=== PATIENT | male | born 1975 | race Caucasian/White ===

== ENCOUNTER 2017-12-30 06:57 | Day surgery (SDC) | payer MEDICAID ==
--- NOTE | 2017-12-30 06:35 | History and Physical - [place] ---
CHIEF COMPLAINT/HISTORY OF CHIEF COMPLAINT: This patient presents with a history of intractable lumbar radiculopathy. Due to the failure of therapy, a spinal cord stimulator trial was conducted on 11/23/17 with 75+% pain control. Due to the failure of other therapies and the success of the trial, he presents today for implantation of a permanent system. PAST MEDICAL HISTORY: Asthmatic bronchitis and sleep apnea. PAST SURGICAL HISTORY: Tonsils and adenoids and podiatric surgery. MEDICATIONS ON ADMISSION: List to be provided. ALLERGIES: None. FAMILY/PSYCHOSOCIAL HISTORY: Social history - Social alcohol and caffeine. Family - Asthma, diabetes, coronary artery disease, hypertension, and cancer. SYSTEMS REVIEW: The patient is appropriate in no acute distress. The remainder of the systems review is positive for glasses, degenerative arthritis , and trouble sleeping. PHYSICAL EXAMINATION: Height is 6'2", weight is 290. No vital signs. HEENT: Within normal limits. LUNGS: Clear. HEART: Regular rate and rhythm. ABDOMEN: Nontender. MUSCULOSKELETAL: Examination of the musculoskeletal system shows diffuse tenderness lumbar spine. Range of motion produces pain into both lower extremities, some more left than right. No motor or sensory abnormalities are noted within the lower extremities. Ambulation - An assistive device is not necessary. NEUROLOGIC: Cranial nerves are intact. IMPRESSION: LUMBAR RADICULOPATHY, ICD-10 CODE M54.16 AND M54.17. PLAN: The patient is here for implantation of a permanent spinal cord stimulator. The potential risks, side effects, and complications have all been carefully reviewed and discussed. The procedure will be considered outpatient, although an overnight stay will be evaluated. JOB NUMBER: [id number] [facility]
[~2017-12-30 06:57] MED LIST: ACETAMINOPHEN 1,000 MG/100 ML BTL IV ONE; CEFAZOLIN 2 Gram 2 GM/50 ML BAG IVPB ONE; FAMOTIDINE 20MG TABLET PO ONE; MECLIZINE 25 MG TABLET PO ONE; METOCLOPRAMIDE 10 MG TABLET PO ONE
[2017-12-30] MEDS ORDERED: FENTANYL PF 100MCG/2ML VIAL IV ONE (06:58)
[2017-12-30] MEDS ORDERED: LIDOCAINE 1% W/EPI 1:200,000 MPF 30ML SQ ONE (06:58)
[2017-12-30] MEDS ORDERED: 0.9 % SODIUM CHLORIDE 10 ML VIAL IVP ONE (06:58)
[2017-12-30] MEDS ORDERED: PROPOFOL 10 MG/ML VIAL IV ONE (06:58)
[2017-12-30] MEDS ORDERED: CEFAZOLIN 1G VIAL IM ONE (06:58)
[2017-12-30] MEDS ORDERED: BUPIVACAINE 0.5% W/EPI MPF 30 ML VIAL IVP ONE (06:58)
[2017-12-30] MEDS ORDERED: HYDROMORPHONE HCL 2 MG/ML VIAL IV ONE (06:58)
[2017-12-30] MEDS ORDERED: MIDAZOLAM HCL 2MG/2ML VIAL IV ONE (06:58)
[2017-12-30] MEDS ORDERED: LIDOCAINE 2% MDV (20MG/ML) 20ML VIAL IV ONE (06:58)
--- NOTE | 2017-12-30 16:29 | Operative Note ---
DATE OF SURGERY: 12/30/17 PREOPERATIVE DIAGNOSIS: INTRACTABLE LUMBAR RADICULOPATHY, ICD-10 CODE = M54.16 AND M54.17. OPERATION: 1. FLUOROSCOPICALLY-GUIDED LEFT EPIDURAL ACCESS T11-12, CURVED EPIMED WITH LOSS OF RESISTANCE. PLACEMENT OF SPINAL CORD STIMULATOR LEAD 1, [employer] 16 WITH 6 ELECTRODES POSITIONED LEFT T6. 2. FLUOROSCOPICALLY-GUIDED EPIDURAL ACCESS LEFT T12-L1, PLACEMENT OF SPINAL CORD STIMULATOR LEAD 2, A [employer] 16 WITH 6 ELECTRODES POSITIONED RIGHT T6. 3. COMPLEX PROGRAMMING OF LEAD 1 OVER 20 MINUTES FOLLOWED BY COMPLEX PROGRAMMING OF LEAD 2 OVER 20 MINUTES. 4. INCISION, SUBCUTANEOUS DISSECTION, AND ANCHORING OF LEAD 1 AND LEAD 2 TO SUPRASPINOUS FASCIA USING A [employer] LOCK[employer] ANCHOR. 5. INCISION, SUBCUTANEOUS DISSECTION, AND CREATION OF SUBCUTANEOUS POUCH AT RIGHT FLANK; SITE PICKED BY PATIENT FOR THE GENERATOR, A [employer] PROGRAMMABLE RECHARGEABLE WAVEWRITER. 6. TUNNELING BETWEEN LEAD POUCH AND GENERATOR POUCH, PLACEMENT OF LEAD IN GENERATOR POUCH, EACH LEAD INTERFACED TO GENERATOR. 7. PLACEMENT OF GENERATOR INTO POUCH. PLACEMENT OF LEADS INTO POUCH. CLOSURE OF BOTH INCISIONS USING STRATAFIX SUTURE 2-0 FASCIA, 3-0 SKIN. DERMABOND CLOSURE. 8. COMPLEX RECOVERY ROOM PROGRAMMING INTERNAL GENERATOR HOME USE TWO STIMULATORS RECOVERY ROOM 20 MINUTES. SURGEON: ONUR PHOENIX D.O. ANESTHESIA: LOCAL SEDATION. ANESTHESIA PROVIDER: THONG SQUIRES CRNA. INDICATION: This patient presents with a history of intractable lumbar radiculopathy. Due to the failure of all therapies and a successful stimulator trial, the patient presents today for implantation of a permanent system. PROCEDURE: Intravenous line, vital sign monitoring, IV sedation. Prepped and draped sterile technique. Patient position prone. Sterile prep, sterile technique with imaging. The epidural interspace from the left at 11-12 and 12-1 marked, infiltrated. Using curved access Epimed needles with [id number] , this space was accessed. At 11-12, spinal cord stimulator lead 1, a [employer] 16 with 6 electrodes was positioned left of midline T6. With the epidural access at 12-1, spinal cord stimulator lead 2, also a [employer] 16 with 6 electrodes was positioned right at T6. Complex programming of lead 1 over 20 minutes followed by complex programming of lead 2 over 20 minutes resulting in complete patterns of stimulation across the back and into both legs; patient indicating we were in all of the areas of the pain. He was given the option to implant, continue to program, or remove; he opted to implant. Questions repeated with the same response. The skin above and below both needles was infiltrated, incision made, and subcutaneous dissection was conducted to the supraspinous fascia. Each of the leads was then anchored to the supraspinous fascia once the needle was removed with a [employer] [place] and nonabsorbable suture. At the right flank; a site picked by the patient for the generator, skin infiltrated, incision made and subcutaneous dissection was conducted to form a pouch of suitable size and depth for the generator, a [employer] Programmable Rechargeable WaveWriter. A tunneling tool carried the leads into the generator pouch and each lead was interfaced to the generator. Antibiotic irrigation and Bovie for hemostasis. The generator was placed into the pouch, the leads were placed into their own pouch, then both incisions were closed using STRATAFIX suture 2-0 fascia and 3- 0 skin. Dermabond closure approximating the edges of the wound. He was transported to the Recovery Room stable. No side-effects from the procedure or the sedation. When fully awake and alert in the Recovery Room, complex programming of the generator performed over 20 minutes re-establishing stimulation and pain control to all of the appropriate areas. He was instructed on the use of the system, provided with information and error messaging, and then prepared for discharge. DISCHARGE INSTRUCTIONS: 1. Sites to remain clean and dry. No showering or bathing in any way that would disrupt dressings. If it happens, contact the clinic. 2. Standard medications resumed including the antibiotic Levaquin 500 mg once a day for 14 days. 3. The office will contact the patient in the next 24-48 hours to set up an appointment in 7-10 days to evaluate the incisions. Until then, he is to keep his activities controlled. All other instructions provided, numbers to contact with problems given. He will be evaluated. He has 75-85% overall pain control. cc: Dr. Brandon James JOB NUMBER: [id number] [facility]TDD
--- NOTE | 2017-12-31 10:06 | RADIOLOGY REPORT ---
EXAM: THORACOLUMBAR SPINE HISTORY: SPINAL CORD STIMULATOR IMPLANT. TECHNIQUE: A single frontal view of the thoracolumbar spine was obtained. Comparison: None. FINDINGS: Spinal stimulator leads superimpose the T6 through T8 vertebral bodies. A stimulator generator pack superimposes the right abdomen. Please see procedural note for additional details. IMPRESSION: ABOVE. JOB NUMBER: [id number] [facility]TDD
== END 2017-12-30 10:45 | disposition home or self-care (01) ==
LOC: SUR 06:57
PROVIDERS: ATTEND Pain Medicine Interventional Pain Medicine
DX: M54.16 Radiculopathy, lumbar region (principal); M54.17 Radiculopathy, lumbosacral region; K21.9 Gastro-esophageal reflux disease without esophagitis; F17.210 Nicotine dependence, cigarettes, uncomplicated
CPT/HCPCS: 63650; 63685; 01936; 95972; 72020; J3010; J1170; J0690; C1820; C1883